=== PATIENT | female | born 2000 | race Caucasian/White ===

== ENCOUNTER 2019-11-18 21:30 | Emergency (ER) | payer SELFPAY ==
[~2019-11-18] VITALS: Ht 147.3 cm; Wt 57.3 kg
[~2019-11-18 21:30] MED LIST: FLAGYL500 MG PO; ZITHROMAX500 M2 PO
[2019-11-18 22:49] LABS: COLLECTION METHOD CLEAN CATCH
[2019-11-18 22:52] LABS: BASO # 0.1 (0.0-0.2); BASO % 0.4 % (0.0-2.0); EOS # 0.1 (0.0-0.7); EOS % 0.8 % (0-4.0); GRAN # 10.2 (1.4-6.5); GRAN % 75.8 % (42.2-75.2); HEMOGLOBIN 14.7 g/dl (12.0-15.0); MEAN CELL VOLUME 87 fl (80.0-95.0); MEAN CORPUSCULAR HEMOGLOBIN 30 pg (26.0-32.0); MEAN CORPUSCULAR HGB CONC 34 g/dl (33.0-37.0); MONO % 7.6 % (1.7-9.3); PLATELET COUNT 286 K/mm3 (130-400); RED BLOOD COUNT 4.96 M/mm3 (4.10-5.30); REDCELL DISTRIBUTION WIDTH-CV 12.9 % (11.5-14.5)
[2019-11-18 22:58] LABS: MUCOUS Present /lpf; PH 6 (5-8); SQUAMOUS EPITHELIAL 20-50 /hpf; URINE APPEARANCE Cloudy; URINE BACTERIA Rare /hpf; URINE BILIRUBIN Negative (NEGATIVE); URINE BLOOD Negative (NEGATIVE); URINE COLOR Amber; URINE GLUCOSE Negative (NEGATIVE); URINE KETONE 1+ (NEGATIVE); URINE LEUKOCYTE ESTERASE Trace (NEGATIVE); URINE NITRATE Negative (NEGATIVE); URINE PROTEIN(semi-quant) 1+ (NEGATIVE); URINE RBC 0-2 /hpf; URINE UROBILINOGEN Negative (NEGATIVE)
[2019-11-18 23:48] LABS: ALBUMIN 4.4 gm/dL (3.5-5.0); BILIRUBIN,TOTAL 0.7 mg/dL (0.0-1.0); CALCIUM 9.1 mg/dL (8.4-10.2); CREATININE, serum 0.55 (0.52-1.25); POTASSIUM 3.6 mmol/L (3.4-5.0); TOTAL PROTEIN 7.7 gm/dL (6.4-8.2)
[2019-11-19 00:22] LABS: C-REACTIVE PROTEIN 0.6 mg/dL (0.0-0.9)
[2019-11-19] MEDS ORDERED: PHENERGAN 25 TA25 MG PO (01:08)
[2019-11-19 01:58] VITALS: BP 110/64; PULSE 78; TEMP 98
== END 2019-11-19 02:04 | disposition home or self-care (01) ==
LOC: COL.ER 21:30
PROVIDERS: Family Medicine
DX: O21.0 Mild hyperemesis gravidarum (principal); O98.311 Other infections with a predominantly sexual mode of transmission complicating pregnancy, first trimester; A56.02 Chlamydial vulvovaginitis; N76.0 Acute vaginitis; Z3A.01 Less than 8 weeks gestation of pregnancy
CPT/HCPCS: J0456; J2270; J2550; J7030; J7050; J7120

== ENCOUNTER 2019-12-01 21:53 | Emergency (ER) | payer SELFPAY ==
[~2019-12-01] VITALS: Ht 162.6 cm; Wt 59.1 kg
[~2019-12-01 21:53] MED LIST changes: +PHENERGAN 25 TA25 MG PO
[2019-12-01 22:12] VITALS: BP 106/74; TEMP 97.9
[2019-12-01 23:14] LABS: BASO # 0.1 (0.0-0.2); BASO % 0.5 % (0.0-2.0); EOS # 0.2 (0.0-0.7); EOS % 1.4 % (0-4.0); GRAN % 74.6 % (42.2-75.2); HEMATOCRIT 42.1 % (35.0-45.0); HEMOGLOBIN 14.4 g/dl (12.0-15.0); LYMPH # 2.4 (1.2-3.4); LYMPH % 16.2 % (20.0-51.0); MEAN CELL VOLUME 86 fl (80.0-95.0); MEAN CORPUSCULAR HEMOGLOBIN 30 pg (26.0-32.0); MEAN CORPUSCULAR HGB CONC 34 g/dl (33.0-37.0); MEAN PLATELET VOLUME 9.1 fl (7.4-10.4); MONO % 6.9 % (1.7-9.3); PLATELET COUNT 296 K/mm3 (130-400); RED BLOOD COUNT 4.88 M/mm3 (4.10-5.30); REDCELL DISTRIBUTION WIDTH-CV 12.5 % (11.5-14.5)
[2019-12-01 23:26] LABS: ALBUMIN 4.7 gm/dL (3.5-5.0); BILIRUBIN,TOTAL 0.6 mg/dL (0.0-1.0); CALCIUM 9.7 mg/dL (8.4-10.2); CREATININE, serum 0.56 (0.52-1.25); POTASSIUM 3.8 mmol/L (3.4-5.0); TOTAL PROTEIN 8.2 gm/dL (6.4-8.2)
[2019-12-02 00:07] LABS: COLLECTION METHOD CLEAN CATCH
[2019-12-02 00:29] LABS: AMORPHOUS CRYSTAL Present /uL; MUCOUS Present /lpf; PH 6 (5-8); URINE APPEARANCE Cloudy; URINE BACTERIA None Seen /hpf; URINE BILIRUBIN Negative (NEGATIVE); URINE BLOOD Negative (NEGATIVE); URINE COLOR Yellow; URINE GLUCOSE Negative (NEGATIVE); URINE KETONE 2+ (NEGATIVE); URINE LEUKOCYTE ESTERASE Trace (NEGATIVE); URINE NITRATE Negative (NEGATIVE); URINE PROTEIN(semi-quant) 1+ (NEGATIVE); URINE UROBILINOGEN Negative (NEGATIVE)
[2019-12-02] MEDS ORDERED: PHENERGAN 25 TA25 MG PO (00:45)
[2019-12-02] MEDS ORDERED: MACROBID 1100 MG/CAP PO (00:45)
[2019-12-02 00:57] VITALS: PULSE 70
== END 2019-12-02 00:57 | disposition home or self-care (01) ==
LOC: COL.ER 21:53
PROVIDERS: Nurse Practitioner
DX: R10.84 Generalized abdominal pain (principal); M54.5 Low back pain

== ENCOUNTER 2019-12-04 09:23 | Emergency (ER) | payer SELFPAY ==
[~2019-12-04] VITALS: Wt 56.8 kg
[~2019-12-04 09:23] MED LIST changes: +MACROBID 1100 MG/CAP PO
[2019-12-04 09:29] VITALS: BP 102/69; TEMP 97.8
[2019-12-04 10:35] LABS: COLLECTION METHOD CLEAN CATCH
[2019-12-04 10:42] LABS: BASO # 0.1 (0.0-0.2); BASO % 0.5 % (0.0-2.0); EOS # 0.1 (0.0-0.7); EOS % 0.8 % (0-4.0); GRAN # 8.5 (1.4-6.5); GRAN % 79.1 % (42.2-75.2); HEMATOCRIT 41.8 % (35.0-45.0); HEMOGLOBIN 14.2 g/dl (12.0-15.0); LYMPH # 1.4 (1.2-3.4); LYMPH % 13.1 % (20.0-51.0); MEAN CELL VOLUME 86 fl (80.0-95.0); MEAN CORPUSCULAR HEMOGLOBIN 29 pg (26.0-32.0); MEAN CORPUSCULAR HGB CONC 34 g/dl (33.0-37.0); MEAN PLATELET VOLUME 9.3 fl (7.4-10.4); MONO # 0.6 (0.1-0.6); MONO % 5.9 % (1.7-9.3); PLATELET COUNT 275 K/mm3 (130-400); RED BLOOD COUNT 4.87 M/mm3 (4.10-5.30); REDCELL DISTRIBUTION WIDTH-CV 12.5 % (11.5-14.5)
[2019-12-04 10:50] LABS: ALBUMIN 4.5 gm/dL (3.5-5.0); BILIRUBIN,TOTAL 0.8 mg/dL (0.0-1.0); CALCIUM 9.5 mg/dL (8.4-10.2); CREATININE, serum 0.57 (0.52-1.25); POTASSIUM 3.6 mmol/L (3.4-5.0)
[2019-12-04 10:58] LABS: MUCOUS Present /lpf; PH 6 (5-8); SQUAMOUS EPITHELIAL >50 /hpf; URINE APPEARANCE Turbid; URINE BACTERIA Rare /hpf; URINE BILIRUBIN Negative (NEGATIVE); URINE BLOOD Negative (NEGATIVE); URINE COLOR Amber; URINE GLUCOSE Negative (NEGATIVE); URINE KETONE 1+ (NEGATIVE); URINE LEUKOCYTE ESTERASE 1+ (NEGATIVE); URINE NITRATE Negative (NEGATIVE); URINE PROTEIN(semi-quant) 2+ (NEGATIVE)
[2019-12-04] MEDS ORDERED: OMNICEF 300MG300 MG PO (11:32)
[2019-12-04 12:19] VITALS: PULSE 64
== END 2019-12-04 12:10 | disposition home or self-care (01) ==
LOC: COL.ER 09:23
PROVIDERS: Nurse Practitioner Primary Care
DX: O23.91 Unspecified genitourinary tract infection in pregnancy, first trimester (principal); O21.9 Vomiting of pregnancy, unspecified; Z3A.10 10 weeks gestation of pregnancy
CPT/HCPCS: J0696; J2550; J7120

== ENCOUNTER 2019-12-25 21:54 | Emergency (ER) | payer SELFPAY ==
[~2019-12-25] VITALS: Ht 160 cm; Wt 54.5 kg
[~2019-12-25 21:54] MED LIST changes: +DICLEGIS PO; +OMNICEF 300MG300 MG PO
[2019-12-26 00:36] LABS: BASO % 0.2 % (0.0-2.0); EOS % 0.2 % (0-4.0); GRAN % 81.6 % (42.2-75.2); HEMATOCRIT 39.3 % (35.0-45.0); HEMOGLOBIN 13.7 g/dl (12.0-15.0); LYMPH # 1.4 (1.2-3.4); LYMPH % 11.3 % (20.0-51.0); MEAN CELL VOLUME 85 fl (80.0-95.0); MEAN CORPUSCULAR HEMOGLOBIN 30 pg (26.0-32.0); MEAN CORPUSCULAR HGB CONC 35 g/dl (33.0-37.0); MEAN PLATELET VOLUME 9.1 fl (7.4-10.4); MONO # 0.8 (0.1-0.6); MONO % 6.2 % (1.7-9.3); PLATELET COUNT 290 K/mm3 (130-400); RED BLOOD COUNT 4.63 M/mm3 (4.10-5.30)
[2019-12-26 00:46] LABS: ALBUMIN 4.6 gm/dL (3.5-5.0); BILIRUBIN,TOTAL 2.1 mg/dL (0.0-1.0); CALCIUM 9.6 mg/dL (8.4-10.2); CREATININE, serum 0.51 (0.52-1.25); POTASSIUM 3.9 mmol/L (3.4-5.0); TOTAL PROTEIN 8.2 gm/dL (6.4-8.2)
[2019-12-26] MEDS ORDERED: PEPCID 20MG TAB20 MG PO (01:08)
[2019-12-26] MEDS ORDERED: PHENERGAN25 MG RC (01:08)
[2019-12-26 03:49] VITALS: BP 114/72; PULSE 67; TEMP 98.2
== END 2019-12-26 03:20 | disposition home or self-care (01) ==
LOC: COL.ER 21:54
PROVIDERS: Emergency Medicine
DX: O21.9 Vomiting of pregnancy, unspecified (principal); O99.611 Diseases of the digestive system complicating pregnancy, first trimester; K29.70 Gastritis, unspecified, without bleeding; Z3A.12 12 weeks gestation of pregnancy
CPT/HCPCS: J2405; J2550; J7030

== ENCOUNTER 2020-01-13 07:21 | Emergency (ER) | payer SELFPAY ==
[~2020-01-13] VITALS: Ht 152.4 cm; Wt 57.3 kg
[~2020-01-13 07:21] MED LIST changes: +PEPCID 20MG TAB20 MG PO; +PHENERGAN25 MG RC
[2020-01-13 07:30] VITALS: TEMP 97.7
[2020-01-13 08:28] LABS: BASO % 0.3 % (0.0-2.0); EOS # 0.1 (0.0-0.7); EOS % 0.8 % (0-4.0); GRAN # 7.6 (1.4-6.5); GRAN % 77.5 % (42.2-75.2); HEMOGLOBIN 13.1 g/dl (12.0-15.0); LYMPH # 1.4 (1.2-3.4); LYMPH % 13.8 % (20.0-51.0); MEAN CELL VOLUME 87 fl (80.0-95.0); MEAN CORPUSCULAR HEMOGLOBIN 29 pg (26.0-32.0); MEAN CORPUSCULAR HGB CONC 34 g/dl (33.0-37.0); MEAN PLATELET VOLUME 9.2 fl (7.4-10.4); MONO # 0.7 (0.1-0.6); PLATELET COUNT 265 K/mm3 (130-400); RED BLOOD COUNT 4.49 M/mm3 (4.10-5.30); REDCELL DISTRIBUTION WIDTH-CV 13.3 % (11.5-14.5)
[2020-01-13 08:32] LABS: COLLECTION METHOD CLEAN CATCH
[2020-01-13 08:41] LABS: ALBUMIN 4.5 gm/dL (3.5-5.0); BILIRUBIN,TOTAL 0.9 mg/dL (0.0-1.0); CALCIUM 9.7 mg/dL (8.4-10.2); CREATININE, serum 0.47 (0.52-1.25); MAGNESIUM 1.8 mg/dL (1.6-2.3); POTASSIUM 3.8 mmol/L (3.4-5.0); TOTAL PROTEIN 7.9 gm/dL (6.4-8.2)
--- NOTE | 2020-01-13 08:44 | NUR ---
Char Filter Tank Tender was consulted for the patient due to no care. Char Filter Tank Tender contacted [employer] in [place]. They only provide scholarhsip opportunites to [facility] residents. SW contacted the [facility]. They have a dorcas program which provides assistance to anyone who cannot obtain and have no options for insurance. The point of contact is [email or web address]. NISA met with the patient to discuss her options. She states she is already connected with [facility] and will [facility]. NISA will email [facility] to ensure they can assist the patient in obtaining medications during . NISA collaborated the above information with the PA and the ED Char Filter Tank Tender.
[2020-01-13 09:40] LABS: BUDDING YEAST Present /hpf; MUCOUS Present /lpf; PH 7 (5-8); SQUAMOUS EPITHELIAL 20-50 /hpf; URINE APPEARANCE Turbid; URINE BACTERIA None Seen /hpf; URINE BILIRUBIN Negative (NEGATIVE); URINE BLOOD Negative (NEGATIVE); URINE COLOR Amber; URINE GLUCOSE Negative (NEGATIVE); URINE KETONE 1+ (NEGATIVE); URINE LEUKOCYTE ESTERASE 1+ (NEGATIVE); URINE NITRATE Negative (NEGATIVE); URINE PROTEIN(semi-quant) 1+ (NEGATIVE); URINE UROBILINOGEN >=4.0 mg/dL (NEGATIVE)
[2020-01-13 09:51] LABS: AMORPHOUS CRYSTAL Present /uL; URINE RBC None Seen /hpf
[2020-01-13 10:36] LABS: COLLECTION METHOD CATHETER
[2020-01-13 11:30] LABS: MUCOUS Present /lpf; PH 7 (5-8); URINE APPEARANCE Hazy; URINE BACTERIA None Seen /hpf; URINE BILIRUBIN Negative (NEGATIVE); URINE BLOOD Negative (NEGATIVE); URINE COLOR Yellow; URINE GLUCOSE Negative (NEGATIVE); URINE KETONE 2+ (NEGATIVE); URINE LEUKOCYTE ESTERASE Negative (NEGATIVE); URINE NITRATE Negative (NEGATIVE); URINE PROTEIN(semi-quant) Negative (NEGATIVE); URINE UROBILINOGEN >=4.0 mg/dL (NEGATIVE)
[2020-01-13] MEDS ORDERED: PHENERGAN25 MG RC ×5 (11:51→12:13)
[2020-01-13] MEDS ORDERED: PROMETHAZINE12.5 M5 PO ×5 (11:51→12:13)
[2020-01-13 12:20] VITALS: BP 94/68; PULSE 75
--- NOTE | 2020-01-13 12:57 | NUR ---
odd bundle worker met with patient and utilized [employer] extract operator as patient does not speak vietnamese. Patient verbalized, from workers questioning, that she lives with "guys she has known for a long time" and has been in the [facility] for about 8 months. Patient states that the guys she lives with are in the [employer] business. Patient denies that she has been forced to have sexual intercourse or perform acts against her will. Worker confirmed with the [facility] that patient has her first OB appointment on 01/16/2020 and her care at this clinic is funded by the [facility]. Patient has had [facility] ED visits and states she does not have money to purchase prescriptions and take the medications that have been given to her in the ED. Patient states she does not work and "stays home all day". Patient states that the men she lives with give her money. Patient states that all of her family is out of the country and that the father of her baby is currently in [place], [place]. Worker stressed the importance of care and supplies that she will need to care for her baby. Patient answers yes when asked if the father of her baby is supportive. Case management will assist patient with a voucher to pay for her prescriptions today. Worker collaborated with Dr Sapp and nurse regarding the above information. Worker discussed the Financial Assistance Application that she has been given several times, by the financial counselor. Patient stated that she needs assistance completing this application and collaborated with Rolando, financial assistance counselors, to help patient.
--- NOTE | 2020-01-13 14:09 | NUR ---
The patient is being prescribed two medications. NISA contacted Ariadna at [facility]. Ariadna reports that they do not have one of the medications she needs in stock. NISA contacted [facility]. [facility] reports that they have both and are able to accept the medication voucher. NISA notified the patient's RN and attending in the ED. The patient's scripts were sent to [facility]. NISA faxed the med voucher to [facility]. NISA collaborated with the patient's RN. The patient RN informed the patient, using the interpretor line, that her medications are being sent to [facility]. No additional needs at this time.
== END 2020-01-13 12:23 | disposition home or self-care (01) ==
LOC: COL.ER 07:21
PROVIDERS: Emergency Medicine; Physician Assistant
DX: O21.9 Vomiting of pregnancy, unspecified (principal); Z3A.00 Weeks of gestation of pregnancy not specified
CPT/HCPCS: J2550; J7030

== ENCOUNTER 2020-01-18 19:00 | Emergency (ER) | payer SELFPAY ==
[~2020-01-18] VITALS: Ht 152.4 cm; Wt 55.0 kg
[~2020-01-18 19:00] MED LIST changes: +PROMETHAZINE12.5 M5 PO
[2020-01-18 19:04] VITALS: TEMP 98.4
[2020-01-18 20:38] LABS: COLLECTION METHOD CLEAN CATCH
[2020-01-18 21:04] LABS: BASO # 0.1 (0.0-0.2); BASO % 0.4 % (0.0-2.0); EOS # 0.1 (0.0-0.7); EOS % 0.5 % (0-4.0); GRAN # 8.5 (1.4-6.5); GRAN % 76.9 % (42.2-75.2); LYMPH # 1.5 (1.2-3.4); LYMPH % 13.7 % (20.0-51.0); MEAN CELL VOLUME 86 fl (80.0-95.0); MEAN CORPUSCULAR HEMOGLOBIN 30 pg (26.0-32.0); MEAN CORPUSCULAR HGB CONC 35 g/dl (33.0-37.0); MEAN PLATELET VOLUME 9.5 fl (7.4-10.4); MONO # 0.9 (0.1-0.6); MONO % 7.7 % (1.7-9.3); PLATELET COUNT 311 K/mm3 (130-400); RED BLOOD COUNT 4.67 M/mm3 (4.10-5.30); REDCELL DISTRIBUTION WIDTH-CV 13.2 % (11.5-14.5)
[2020-01-18 21:06] LABS: MUCOUS Present /lpf; PH 6 (5-8); URINE APPEARANCE Cloudy; URINE BACTERIA Rare /hpf; URINE BILIRUBIN Positive (NEGATIVE); URINE BLOOD Negative (NEGATIVE); URINE COLOR Amber; URINE GLUCOSE Negative (NEGATIVE); URINE KETONE 2+ (NEGATIVE); URINE LEUKOCYTE ESTERASE 3+ (NEGATIVE); URINE NITRATE Negative (NEGATIVE); URINE PROTEIN(semi-quant) 1+ (NEGATIVE); URINE UROBILINOGEN >=4.0 mg/dL (NEGATIVE)
[2020-01-18 23:55] VITALS: BP 118/74; PULSE 72
== END 2020-01-18 23:55 | disposition home or self-care (01) ==
LOC: COL.ER 19:00
PROVIDERS: Nurse Practitioner
DX: O26.892 Other specified pregnancy related conditions, second trimester (principal); R10.31 Right lower quadrant pain; Z3A.17 17 weeks gestation of pregnancy
CPT/HCPCS: J2550; J7030